=== PATIENT | male | born 1950 | race Caucasian/White ===

== ENCOUNTER → 2017-11-20 | Outpatient (CLI) | payer OTHER | LOC: RAD 09:37 | DX: M25.461 Effusion, right knee (principal); M25.861 Other specified joint disorders, right knee; M76.891 Other specified enthesopathies of right lower limb, excluding foot ==

== ENCOUNTER 2021-02-14 07:08 | Observation (INO) | payer OTHER ==
[~2021-02-14] VITALS: Ht 180.3 cm; Wt 125.2 kg
[~2021-02-14 07:08] MED LIST: HYDROXYCHLOROQ200 M1 PO; IBUPROFEN 200200 M1 PO; LASIX 40 MG TAB40 M2 PO; NEURONTIN 300300 M1 PO; OMEPRAZOLE40 MG PO; POTASSIUM20 PO; PRILOSEC 20 MG20 MG PO; PRINIVIL20 MG PO; SINGULAIR 10 MG10 M1 PO; TRI-BUFFERED A325 M1 PO; TYLENOL325 M1 PO; VOLTAREN GEL 1100 G2 TOP; ZOCOR 20 MG TAB20 M1 PO
--- NOTE | 2021-02-14 09:15 | EKG ---
[address] [place] [address] ELECTROCARDIOGRAM REPORT Name: BEHZAD SUNSHINE Room #: 150-4 [facility].#: [id number] Admission: 02/14/21 Attend Phys: Joe Renteria MD Discharge: Date of : 48 Report #: [id number] [facility] Test Date: 2021-02-14 Test Time: 08:14:02 Pat Name: BEHZAD SUNSHINE Department: Room: 150 4 Gender: M [employer]ator: ALEIDA : 1950 Requested By: Joe Renteria Order Number: [id number] MD: Wili Shaw Measurements Intervals [place] Rate: 64 P: 32 [place]: 176 QRS: -39 QRSD: 110 T: 29 QT: 405 QTc: 418 Interpretive Statements Sinus rhythm Left axis deviation Abnormal R-wave progression, late transition Nonspecific intraventricular conduction delay Compared to ECG 05/03/2018 09:28:23 Left-axis deviation now present Electronically Signed On 02-14-2021 9:14:45 CDT by Wili Shaw [email or web address] <ELECTRONICALLY SIGNED> By: Wili Shaw MD, [facility] 02/14/21913 3 3 Wili Shaw MD, [facility] /EPI
[2021-02-14 09:18] VITALS: BP 145/74
[2021-02-14 13:39] VITALS: BP 153/86
[2021-02-14 16:39] VITALS: BP 143/88
--- NOTE | 2021-02-14 18:37 | NUR ---
ASSUMED PT CARE AT 1330 FROM PACU. PT HAD GASTROCUTANEOUS FISTULA REPAIR. PT IS ALERT & ORIENTED X4. PT HAS IV SITE ON L WRIST 20 GAUGE. PT TOLERATED DIET AND MEDICATION WELL. NO C/O OF PAIN, NAUSEA AND VOMITING DURING THE SHIFT. PT IS ON ROOM AIR. FINISHED ADMISSION. PT HAS BILATERAL HEARING AIDS AND EYEGLASSES. PT ON THE BED, BED ON THE LOWEST POSITION, SIDE RAILS UP, CALL LIGHT WITHIN REACH. WILL CONTINUE TO MONITOR PT. FOLLOW POC.
[2021-02-14 19:50] VITALS: BP 147/85
--- NOTE | 2021-02-15 01:50 | NUR ---
ASSESSED AT START OF SHIFT. PT RESTING WELL IN BED. EVENING MEDS AND PAIN MEDICATION GIVEN. PT UP AD FERNANDO TO THE BATHROOM. DENIES N/V. CALL LIGHT AT REACH AND WILL CONT TO MONITOR. ABD JEANINESING INTACT.
[2021-02-15 03:20] VITALS: BP 129/77
[2021-02-15 08:10] VITALS: BP 146/82
--- NOTE | 2021-02-15 09:06 | NUR ---
ASSUMED CARE OF PT AT 0700. PT SITTING UP IN BED. A&OX4. PT STATES HE HAS A HEADACHE AND HIS ABD INCISION IS SOR. DRESSING TO ABD IS C/D/I. PT UP AD FERNANDO TO BATHROOM, STEADY GAIT NOTED. PT UP IN CHAIR AT THIS TIME, CALL LIGHT WITHIN REACH. WILL CONTNIUE TO MONITOR.
--- NOTE | 2021-02-15 09:20 | NUR ---
Chart review. Chris visited with Lucas, he up in recliner chair. A & o x 3, pleasant and able to make his needs know. Intro to cm and dcp. He reported been living with son, daughter in law and granddaughter's, have walk out basement, have little area to cook, in microwave. 13 stairs, able to do them when feeling ok. No dme, no hh or rehab in past. Drive when feel well and manage own medication. Do workout when I can, and hope can go home around 2pm today per Lucas. No anticipated needs at ri. DCP- home no needs.
--- NOTE | 2021-02-15 12:01 | O ---
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 POSTOPERATIVE DIAGNOSES: 1. 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 2. Small incisional hernia at his first PEG tube site with fat protruding through a small fascial defect. PROCEDURES PERFORMED: 1. Excision of gastrocutaneous fistula with closure of gastric wall. 2. Repair of a small incisional hernia. ANESTHESIA: General anesthesia. SURGEON: Joe Renteria MD COMPLICATIONS: None. ESTIMATED BLOOD LOSS: 5 mL. DESCRIPTION OF PROCEDURE: With the patient under general anesthesia, IV antibiotic was administered. Timeout was performed. Betadine was used to prep the abdomen. Abdomen was draped in sterile fashion. A 0.25% Marcaine was used to anesthetize the skin. The patient has the fistula site and also previous PEG tube site just below the xiphoid. It was quite close to the xiphoid, which is kind of surprising. The skin was excised including the external portion of the fistula. Ellipse was also drawn around the old PEG tube site. Skin was incised sharply. Cautery was used to gain hemostasis. Cautery was used to dissect down to the fascia level. There is a small fat that is protruding through the fascia inferior to the fistula side and this was consistent with a small hernia through the PEG tube tract. The fistula tract is identified and maintained and left intact. The abdomen was freed underneath the fascia. A small amount of adhesion was present, but not inhibitory. The stomach was isolated. Superiorly, there is a scar tissue that is lying on top of the stomach, which may have been from a small amount of leak from the PEG tube. A probe was placed into the external part of the fistula tract down through the fistula tract into the stomach. The stomach was intact. There was no defect in the stomach. [facility] [address] [place] [address] OPERATIVE REPORT Name: BEHZAD SUNSHINE Room #: 438-P [facility] Reza Casillas#: [id number] Admission: 02/14/21 Attend Phys: Joe Renteria MD Discharge: Date of : 48 Report #: [id number] 3-0 Nurolon was placed in the gastric wall about a centimeter and a half above and below the actual fistula that was attached to the stomach. This was a seromuscular layer. This closed the small scar tissue that is superiorly. After the external sutures were placed, the fistula tract was disconnected from the stomach sharply with a knife. Hemostasis was obtained. The serosal mucosa was closed with a running 3-0 Vicryl suture. Then, external seromuscular sutures were placed closing the fistula side of the stomach. A total of 6 external interrupted 3-0 Nurolon sutures were placed in the seromuscular layer. Irrigation was performed. The stomach was dropped back down. The posterior fascia was closed with 0 PDS in running fashion. External anterior fascia was closed with 0 PDS in running fashion. This closed the previously described small hernia defect. Skin was irrigated. Skin was closed with 4-0 nylon in a running fashion. Antibiotic ointment, 4 x 4, OpSite used for dressing. The patient tolerated the procedure well. <ELECTRONICALLY SIGNED> By: Joe Renteria MD 02/15/21 1201 1406 1510 Joe Renteria MD /nt
[2021-02-15] MEDS ORDERED: HYDROCODON-ACE1 EAC7 PO (12:09)
[2021-02-15 13:58] VITALS: BP 146/82
--- NOTE | 2021-02-15 15:15 | NUR ---
PT DC'D HOME. NO NEEDS IDENTIFIED.
--- NOTE | 2021-02-19 18:06 | PATH ---
[facility] [address] [place] [address] PATHOLOGY RPT PROCEDURE Name: BEHZAD SUNSHINE Room #: 438-P [facility] Reza M.R.#: [id number] Admission: 02/14/21 Date of : 48 Discharge: 02/15/21 Report #: [id number] Path Case #: [id number] [facility] Accession Number: [id number] . 01 Material submitted: . gastrointestinal site - GASTROCUTANEOUS FISTULA . 01 Clinical history: . GASTROCUTANEOUS FISTULA REPAIR . 02 Diagnosis: Gastrocutaneous fistula: - Track lined by marked acute inflammation, compatible with fistula. - Skin with acute inflammation and reactive changes. (IUV:pit; 02/19/2021) QTP 02/19/2021 [facility]5 Local . 02 Electronically signed: . Diana Jordan MD, Pathologist NPI- [id number] . 01 Gross description: . The specimen is received in formalin, labeled "Behzad Sunshine, gastrocutaneous fistula". Received is an ellipse of skin with attached underlying fibroadipose tissue measuring 5.4 x 2.0 x 2.1 cm in greatest dimensions. The epidermal surface displays exposed red-brown underlying tissue measuring 1.0 x 0.9 cm. Sectioning reveals a fistula measuring 1.0 cm with sutures present. The specimen is submitted representatively in cassette A1. (CAA; 02/14/2021) QAC/QAC 02/14/2021 1742 Local . 02 Pathologist provided ICD-10: L98.9 . 02 CPT . 802156 Specimen Comment: A courtesy copy of this report has been sent to [phone] Specimen Comment: [phone] Specimen Comment: Report sent to / DR ONEAL Performed at: [address] [id number] MD James Chavez MD Phone: [phone] Performed at: [address] [address] PATHOLOGY RPT PROCEDURE Name: BEHZAD SUNSHINE Room #: 438-P [facility] M.RClemente#: [id number] Admission: 02/14/21 Date of : 48 Discharge: 02/15/21 Report #: [id number] Path Case #: [id number] [address] [place] [id number] MD Diana Jordan MD Phone: [phone]
== END 2021-02-15 15:02 | disposition home or self-care (01) ==
LOC: OR 07:08 → TBA 07:08 → OR 09:32 → 4S 13:25 → OR 16:00 → 4S 16:01 → OR 16:31 → 4S 02-15 15:02
PROVIDERS: ADMIT Surgery; ATTEND Surgery
DX: K31.6 Fistula of stomach and duodenum (principal); K43.2 Incisional hernia without obstruction or gangrene; Z20.822 Contact with and (suspected) exposure to COVID-19; Z93.1 Gastrostomy status; Z79.899 Other long term (current) drug therapy
CPT/HCPCS: 50010; 50101; 50386; 50403; 56524; 56525; 56526; 56528; 62110; 62900; 70005